=== PATIENT | male | born 1930 | race Caucasian/White ===

== ENCOUNTER 2017-06-26 13:06 | Emergency (ER) | payer OTHER ==
[~2017-06-26] VITALS: Ht 175.3 cm; Wt 70.0 kg
[2017-06-26 13:17] VITALS: BP 120/70; PULSE 100; RESP 18; TEMP 97.7; O2SAT 99
[2017-06-26 13:48] VITALS: BP 145/77; PULSE 110; RESP 18; O2SAT 99
[2017-06-26] MEDS ORDERED: ATOR40TA16 PO (13:54)
[2017-06-26] MEDS ORDERED: ALBI1INJ SQ (13:54)
[2017-06-26] MEDS ORDERED: VITATAB11 PO (13:54)
[2017-06-26] MEDS ORDERED: METO25TA3 PO (13:54)
[2017-06-26] MEDS ORDERED: APIX5TAB PO (13:54)
[2017-06-26] MEDS ORDERED: MENT4GEL2 TOPICAL (13:54)
[2017-06-26] MEDS ORDERED: LANTUS2P SQ (13:54)
[2017-06-26] MEDS ORDERED: METF500T PO (13:54)
[2017-06-26 13:55] LABS: AUTOMATED NEUTROPHIL # 5.5 TH/MM3 (1.8-7.7); BASOPHIL % 0.4 % (0.0-2.0); EOSINOPHIL # 0.2 TH/MM3 (0-0.4); HEMATOCRIT 40.7 % (39.0-51.0); HEMOGLOBIN 13.8 GM/DL (13.0-17.0); LYMPH % 16.1 % (9.0-44.0); LYMPHOCYTE # 1.2 TH/MM3 (1.0-4.8); MEAN CORPUSCULAR HEMOGLOBIN 29.2 PG (27.0-34.0); MEAN CORPUSCULAR HGB CONC 33.9 % (32.0-36.0); MEAN PLATELET VOLUME 9.5 FL (7.0-11.0); MONO % 9.8 % (0.0-8.0); MONOCYTE # 0.8 TH/MM3 (0-0.9); NEUT % 71.7 % (16.0-70.0); PLATELET COUNT 174 TH/MM3 (150-450); RED BLOOD COUNT 4.73 MIL/MM3 (4.50-5.90); RED CELL DISTRIBUTION WIDTH 14.3 % (11.6-17.2); WHITE BLOOD COUNT 7.7 TH/MM3 (4.0-11.0)
[2017-06-26 14:18] LABS: BICARBONATE 24.3 MEQ/L (21.0-32.0); CALCIUM 8.5 MG/DL (8.5-10.1); CREATININE 1.27 MG/DL (0.60-1.30)
[2017-06-26] MEDS ORDERED: DILTIAZEM HCL 25 MG/5 ML VIAL IV ONE (14:30)
--- NOTE | 2017-06-26 14:34 | PD ---
HPI Chief Complaint: Cold / Flu Symptoms Time Seen by Provider: 14:12 Travel History International Travel<30 days: No Contact w/Intl Traveler<30days: No Traveled to known affect area: No History of Present Illness HPI 87-year-old male complains of nasal congestion mild dry cough. Patient states that the symptoms started today. Patient denies any headache. Patient states that he has mild sore throat. Patient states that he has mild intermittent dry cough. Patient denies any chest pain or shortness of breath. Patient denies abdominal pain. Patient denies any focal weakness or numbness of extremity. Patient denies any nausea vomiting diarrhea. Patient has history of atrial fibrillation and on Eliquis 5 mg twice a day. Patient also on metoprolol 12.5 mg twice a day. Patient was seen at the [facility] today. Patient was found to be in A. fib with RVR. Patient was advised to go to ED for evaluation. Patient denies any palpitation. Patient denies any chest pain or shortness of breath. 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 PFSH Past Medical History Atrial Fibrillation: Yes High Cholesterol: Yes Diabetes: Yes Patient Takes Glucophage: Yes Hypertension: Yes Tetanus Vaccination: < 5 Years Influenza Vaccination: Yes Social History Alcohol Use: No Tobacco Use: No Substance Use: No Allergies-Medications (Allergen,Severity, Reaction): Coded Allergies: No Known Allergies (Unverified , 06/26/17) Reported Meds & Prescriptions Reported Meds & Active Scripts Active Reported Biofreeze Topical (Menthol Topical) 4 % Gel 1 Applic TOPICAL DIRECTED PRN Vitamin B Complex (B-Complex Vitamins) 1 Tab 1 Tab PO EVERY OTHER DAY Metformin (Metformin HCl) 500 Mg Tab 1,000 Mg PO BIDPC Lantus Inj (Insulin Glargine) 1,000 Unit/10 Ml Vial 4-7 Units SQ HS Tanzeum 4-Pack Inj (Albiglutide) 30 Mg Pfpen 30 Mg SQ Q7D Atorvastatin (Atorvastatin Calcium) 40 Mg Tab 40 Mg PO HS Metoprolol Tartrate 25 Mg Tab 12.5 Mg PO BID Eliquis (Apixaban) 5 Mg Tab 5 Mg PO BID Review of Systems General / Constitutional: No: Fever Eyes: No: Visual changes HENT: Positive: Congestion, No: Headaches Cardiovascular: No: Chest Pain or Discomfort Respiratory: Positive: Cough, No: Shortness of Breath Gastrointestinal: No: Abdominal Pain Genitourinary: No: Dysuria Musculoskeletal: No: Pain Skin: No Rash Neurologic: No: Weakness Psychiatric: No: Depression Endocrine: No: Polydipsia Hematologic/Lymphatic: No: Easy Bruising Physical Exam Narrative GENERAL: Well-nourished, well-developed patient. SKIN: Focused skin assessment warm/dry. HEAD: Normocephalic. EYES: No scleral icterus. No injection or drainage. NECK: Supple, trachea midline. No JVD or lymphadenopathy. CARDIOVASCULAR: Irregular irregular rate and rhythm without murmurs, gallops, or rubs. RESPIRATORY: Breath sounds equal bilaterally. No accessory muscle use. GASTROINTESTINAL: Abdomen soft, non-tender, nondistended. MUSCULOSKELETAL: No cyanosis, or edema. BACK: Nontender without obvious deformity. No CVA tenderness. Neurologic exam normal. Data Data Last Documented VS Vital Signs Date Time Temp Pulse Resp B/P (MAP) Pulse Ox O2 Delivery O2 Flow Rate FiO2 06/26/17 16:08 85 16 137/71 (93) 97 06/26/17 13:48 Room Air 06/26/17 13:17 97.7 Orders Orders Influenzae A/B Antigen (06/26/17 13:24) Electrocardiogram (06/26/17 13:24) Complete Blood Count With Diff (06/26/17 13:24) Basic Metabolic Panel (Bmp) (06/26/17 13:24) Iv Access Insert/Monitor (06/26/17 13:24) Diltiazem Inj (Cardizem Inj) (06/26/17 14:30) Ed Discharge Order (06/26/17 15:48) Labs Laboratory Tests Test 06/26/17 13:34 White Blood Count 7.7 TH/MM3 Red Blood Count 4.73 MIL/MM3 Hemoglobin 13.8 GM/DL Hematocrit 40.7 % Mean Corpuscular Volume 86.0 FL Mean Corpuscular Hemoglobin 29.2 PG Mean Corpuscular Hemoglobin Concent 33.9 % Red Cell Distribution Width 14.3 % Platelet Count 174 TH/MM3 Mean Platelet Volume 9.5 FL Neutrophils (%) (Auto) 71.7 % Lymphocytes (%) (Auto) 16.1 % Monocytes (%) (Auto) 9.8 % Eosinophils (%) (Auto) 2.0 % Basophils (%) (Auto) 0.4 % Neutrophils # (Auto) 5.5 TH/MM3 Lymphocytes # (Auto) 1.2 TH/MM3 Monocytes # (Auto) 0.8 TH/MM3 Eosinophils # (Auto) 0.2 TH/MM3 Basophils # (Auto) 0.0 TH/MM3 CBC Comment DIFF FINAL Differential Comment Blood Urea Nitrogen 20 MG/DL Creatinine 1.27 MG/DL Random Glucose 179 MG/DL Calcium Level 8.5 MG/DL Sodium Level 137 MEQ/L Potassium Level 5.3 MEQ/L Chloride Level 105 MEQ/L Carbon Dioxide Level 24.3 MEQ/L Anion Gap 8 MEQ/L Estimat Glomerular Filtration Rate 54 ML/MIN [facility] Medical Decision Making Medical Screen Exam Complete: Yes Emergency Medical Condition: Yes Interpretation(s) 1432 PM. EKG shows atrial fibrillation with RVR rate 105. 1444 PM. CBC within normal limit. Potassium 5.3. BUN 20. Influenza AB antigen negative. Differential Diagnosis Differential diagnosis including viral syndrome, bronchitis, pneumonia, A. fib with RVR. Narrative Course 87-year-old male with facial congestion, mild dry cough, atrial fibrillation with RVR. History of atrial fibrillation. Cardizem 10 mg IV given. Diagnosis Primary Impression: Atrial fibrillation with RVR Additional Impression: Viral syndrome Patient Instructions: General Instructions Additional Instructions: Increased metoprolol to 25 mg twice a day. Tylenol as needed for aching pain. Follow-up with personal physician. Return if persistent problem or worse. Med/Other Pt SpecificInfo: Existing Med Changed Disposition: 01 DISCHARGE HOME Condition: Stable Yovany Botello MD Jun 26, 2017 14:33
[2017-06-26 16:08] VITALS: BP 137/71
--- NOTE | 2017-06-27 13:30 | EKG ---
Date Performed: 06/26/2017 Time Performed: 13:33:24 PTAGE: 87 years EKG: ATRIAL FIBRILLATION WITH RAPID VENTRICULAR RESPONSE RIGHT BUNDLE BRANCH BLOCK ABNORMAL ECG NO PREVIOUS TRACING DOCTOR: Milo Hopper Interpretating Date/Time 06/27/2017 13:28:49
== END 2017-06-26 16:22 | disposition home or self-care (01) ==
LOC: NEPE 13:06
DX: I48.0 Paroxysmal atrial fibrillation (principal); B34.9 Viral infection, unspecified; I12.9 Hypertensive chronic kidney disease with stage 1 through stage 4 chronic kidney disease, or unspecified chronic kidney disease; E11.22 Type 2 diabetes mellitus with diabetic chronic kidney disease; Z79.01 Long term (current) use of anticoagulants
CPT/HCPCS: 80048; 85025; 87804; 93005; 96374